=== PATIENT | male | born 2000 | race Two or more races ===

== ENCOUNTER → 2023-06-03 | Outpatient (CLI) | payer OTHER | LOC: M RAD 09:27 | PROVIDERS: ATTEND Physician Assistant | DX: M24.831 Other specific joint derangements of right wrist, not elsewhere classified (principal); S69.91XA Unspecified injury of right wrist, hand and finger(s), initial encounter; X58.XXXA Exposure to other specified factors, initial encounter; Y92.9 Unspecified place or not applicable; Y93.9 Activity, unspecified; Y99.9 Unspecified external cause status ==